=== PATIENT | male | born 1965 | race African-American/Black ===

== ENCOUNTER 2019-02-09 11:23 | Inpatient (IN) | payer SELFPAY ==
[2019-02-09 12:20] VITALS: BMI 37.5
--- NOTE | 2019-02-09 14:52 | HP ---
COWS - Scale Resting Pulse: 1= [place] 81-100 Sweatin= Chills/Flushing Restless Observation: 1= Difficult to Sit Still Pupil Size: 1= Pupils >than Normal Bone or Joint Aches: 2= Severe Diffuse Aches Runny Nose/ Eye Tearin= Runny Nose/Eyes GI Upset > 30mins: 2= Nausea/Diarrhea Tremor Observation: 2= Slight Tremor Visible Yawning Observation: 1= 1-2x During Session Anxiety or Irritability: 2=Irritable/Anxious Goose Flesh Skin: 0=Smooth Skin COWS Score: 15 CIWA Score - Admission Criteria OASAS Guidelines: Admission for Medically Managed Detox: Requires at least one of the followin. CIWA greater than 12 2. Seizures within the past 24 hours 3. Delirium tremens within the past 24 hours 4. Hallucinations within the past 24 hours 5. Acute intervention needed for co occurring medical disorder 6. Acute intervention needed for co occurring psychiatric disorder 7. Severe withdrawal that cannot be handled at a lower level of care (continued vomiting, continued diarrhea, abnormal vital signs) requiring intravenous medication and/or fluids 8. Admission ROS S - HPI Chief Complaint: i need help to stop using heroin and cocaine Allergies/Adverse Reactions: Allergies Allergy/AdvReac Type Severity Reaction Status Date / Time No Known Allergies Allergy Verified 02/09/19 12:12 History of Present Illness: this 53 years old male with heroin and cocaine dependence,seeking detox, withdrawal symptom, denied seizure denied syncope nicotine dependence 1/2 pack/day longest period of sobriety 9 years plan for [facility] history of hypertension,[facility] admitted 01/10 in [place] Exam Limitations: No Limitations - Ebola screening Have you traveled outside of the country in the last 21 days: No (N) Have you had contact with anyone from an Ebola affected area: No Do you have a fever: No - Review of Systems Constitutional: Chills, Loss of Appetite, Malaise, Night Sweats, Changes in sleep EENT: reports: Tearing, Nose Congestion Respiratory: reports: No Symptoms reported Cardiac: reports: No Symptoms Reported GI: reports: Nausea, Poor Appetite, Abdominal cramping : reports: No Symptoms Reported Musculoskeletal: reports: Back Pain, Joint Pain, Muscle Pain Integumentary: reports: Dryness Neuro: reports: Headache, Tremors Endocrine: reports: No Symptoms Reported Hematology: reports: No Symptoms Reported Psychiatric: reports: No Sypmtoms Reported, Judgement Intact, Mood/Affect Appropiate, Orientated x3 Other Systems: Reviewed and Negative Patient History - Patient Medical History Hx Anemia: No Hx Asthma: No Hx Chronic Obstructive Pulmonary Disease (COPD): No Hx Cancer: No Hx Cardiac Disorders: No Hx Congestive Heart Failure: Yes (admited in [place] 01/10) Hx Hypertension: Yes Hx Hypercholesterolemia: No Hx Pacemaker: No HX Cerebrovascular Accident: No Hx Seizures: No Hx Dementia: No Hx Diabetes: No Hx Gastrointestinal Disorders: No Hx Liver Disease: No Hx Genitourinary Disorders: No Hx Sexually Transmitted Disorders: No Hx Renal Disease (ESRD): No Hx Thyroid Disease: No Hx Human Immunodeficiency Virus (HIV): No (last 02/10 negative) Hx Hepatitis C: No Hx Depression: No Hx Suicide Attempt: No Hx Bipolar Disorder: No Hx Schizophrenia: No Other Medical History: no suicidal,no homicidal - Patient Surgical History Hx Appendectomy: Yes (in 1990) - PPD History Previous Implant?: Yes Documented Results: Negative w/o proof Implanted On Prior [facility] Admission?: No PPD to be Administered?: No - Smoking Cessation Smoking history: Current every day smoker Have you smoked in the past 12 months: Yes Aproximately how many cigarettes per day: 8 Cigars Per Day: 0 Hx Chewing Tobacco Use: No Initiated information on smoking cessation: Yes 'Breaking Loose' booklet given: 02/09/19 - Substance & Tx. History Hx Alcohol Use: No Hx Substance Use: Yes Substance Use Type: Cocaine, Heroin Hx Substance Use Treatment: Yes (10 years ago,unknown facility) - Substances abused Heroin Substance route: Inhalation Frequency: Daily Amount used: 6-7 bags Age of first use: 23 Date of last use: 02/08/19 Cocaine Substance route: Smoking Frequency: Daily Amount used: 2 grams Age of first use: 18 Date of last use: 02/02/19 Family Disease History - Family Disease History Family History: Denies Admission Physical Exam BHS - Vital Signs Vital Signs: Vital Signs - 24 hr 02/09/19 12:16 Temperature 97.5 F L Pulse Rate 85 Respiratory 20 Rate Blood Pressure 154/105 H - Physical General Appearance: Yes: Moderate Distress, Tremorous, Irritable, Sweating, Anxious, Other HEENTM: Yes: Normal ENT Inspection, NAN, Pharynx Normal Respiratory: Yes: Within Normal Limits, Lungs Clear, Normal Breath Sounds Neck: Yes: Within Normal Limits, Supple, Trachea in good position Breast: Yes: Within Normal Limits Cardiology: Yes: Within Normal Limits, Regular Rhythm, Regular Rate, S1, S2 Abdominal: Yes: Within Normal Limits, Normal Bowel Sounds, Flat, Soft Genitourinary: Yes: Within Normal Limits Back: Yes: Normal Inspection, Muscle Spasm Extremities: Yes: Tremors 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 - Detox or Rehab [facility] Level of Care: Medically Managed Detox Regimen/Protocol: Methadone Breathalyzer - Breathalyzer Breathalyzer: 0 Urine Drug Screen - Test Device Lot number: [id number] Expiration date: 11/23/19 - Control Is test valid?: Yes - Results Drug screen NEGATIVE: No Urine drug screen results: SHAZIA-Cocaine, MOP-Opiates, OXY-Oxycodone, MTD- Methadone Inpatient Rehab Admission - Rehab Decision to Admit Inpatient rehab admission?: No
[2019-02-09] MEDS ORDERED: NICOTINE POLACRILEX 2 MG GUM BUC PRN (15:10)
[2019-02-09] MEDS ORDERED: MAGNESIUM HYDROX 2400MG/30ML ORAL SUSPENSION 30 ML CUP PO PRN (15:10)
[2019-02-09] MEDS ORDERED: ACETAMINOPHEN 325 MG TABLET (FP) PO PRN ×2 (15:10)
[2019-02-09] MEDS ORDERED: MAGNESIUM CITRATE 300 ML BOTTLE PO PRN (15:10)
[2019-02-09] MEDS ORDERED: METHADONE HCL 10 MG TABLET (FOR DETOX USE ONLY) PO ONE (15:10)
[2019-02-09] MEDS ORDERED: MAG HYDROX/AL HYDROX/SIMETH 30 ML UNIT-DOSE CUP PO PRN (15:10)
[2019-02-09] MEDS ORDERED: BISMUTH SUBSALICYLATE 524 MG/30 ML UD PO PRN (15:10)
[2019-02-09] MEDS ORDERED: cloNIDine HCL 0.1 MG TABLET PO PRN (15:10)
[2019-02-09] MEDS ORDERED: MENTHOL/PHENOL 1 EACH UD MM PRN (15:10)
[2019-02-09] MEDS ORDERED: PNEUMOCOCCAL 23 VACCINE 0.5 ML VIAL IM ONE (16:45)
[2019-02-09] MEDS: THIAMINE HCL 100 MG TABLET (FP) PO SCH (22:18)
[2019-02-09] MEDS: CARVEDILOL 3.125 MG TABLET (FP) PO SCH (22:18)
[2019-02-09] MEDS: diazePAM 5 MG TABLET PO PRN (22:19)
[2019-02-10] MEDS: diazePAM 5 MG TABLET PO PRN ×4 (03:34→22:20)
[2019-02-10] MEDS: METHOCARBAMOL 500 MG TABLET PO PRN ×2 (06:34→18:38)
[2019-02-10] MEDS: hydrOXYzine PAMOATE 25 MG CAPSULE (FP) PO PRN ×2 (06:34→18:38)
[2019-02-10] MEDS ORDERED: METHADONE HCL 5 MG TABLET (FOR DETOX USE ONLY) PO ONE (10:00)
[2019-02-10] MEDS: PRENATAL VITAMINS W/ FOLIC ACID TABLET (FP) PO SCH (10:55)
[2019-02-10] MEDS: CARVEDILOL 3.125 MG TABLET (FP) PO SCH ×2 (10:55→22:19)
[2019-02-10] MEDS: FUROSEMIDE 40 MG TABLET (FP) PO SCH (10:55)
--- NOTE | 2019-02-10 11:16 | EKG ---
Test Reason : Blood Pressure : / mmHG Vent. Rate : 076 BPM Atrial Rate : 076 BPM P-R Int : 172 ms QRS Dur : 104 ms QT Int : 426 ms P-R-T Axes : 078 022 067 degrees QTc Int : 479 ms SINUS RHYTHM WITH PREMATURE ATRIAL COMPLEXES WITH ABERRANT CONDUCTION POSSIBLE LEFT ATRIAL ENLARGEMENT BORDERLINE ECG NO PREVIOUS ECGS AVAILABLE Confirmed by DEVIN OSPINA MD ([id number]) on 02/10/2019 11:16:04 AM Referred By: Jose Raul Brennan Confirmed By:DEVIN OSPINA MD
[2019-02-10 12:09] LABS: ALBUMIN 3.2 g/dl (3.4-5.0); BILIRUBIN,TOTAL 0.5 mg/dL (0.2-1); BLOOD UREA NITROGEN 8.2 mg/dL (7-18); CALCIUM 9.5 mg/dL (8.5-10.1); CREATININE 0.9 mg/dL (0.55-1.3); POTASSIUM 3.9 mmol/L (3.5-5.1); TOT PROT 6.1 g/dl (6.4-8.2)
[2019-02-10 12:33] LABS: HEMATOCRIT 46.3 % (35.4-49); HEMOGLOBIN 15.2 GM/dL (11.7-16.9); MCH 25.7 pg (25.7-33.7); MCHC 32.8 g/dl (32.0-35.9); MEAN CELL VOLUME 78.3 fl (80-96); MEAN PLT VOLUME 9.4 fl (7.5-11.1); PLATELET COUNT 332 K/MM3 (134-434); RBC 5.91 M/mm3 (4.00-5.60); RDW 15.2 % (11.9-15.9)
[2019-02-10] MEDS ORDERED: TRIMETHOBENZAMIDE HCL 200MG/2ML INJ IM PRN (14:07)
--- NOTE | 2019-02-10 14:10 | PN ---
BHS COWS - Scale Resting Pulse: 1= [place] 81-100 Sweatin= Chills/Flushing Restless Observation: 1= Difficult to Sit Still Pupil Size: 0= Normal to Room Light Bone or Joint Aches: 2= Severe Diffuse Aches Runny Nose/ Eye Tearin= Runny Nose/Eyes GI Upset > 30mins: 2= Nausea/Diarrhea Tremor Observation of Outstretched Hands: 2= Slight Tremor Visible Yawning Observation: 1= 1-2x During Session Anxiety or Irritability: 2=Irritable/Anxious Goose Flesh Skin: 3=Piloerection COWS Score: 17 [facility] Progress Note (SOAP) Subjective: Anxious, Nausea, Tremors, Body Aches, Interrupted Sleep, Diarrhea, Runny Nose, Sweating. Objective: PATIENT A & O X 2 (UNCERTAIN ABOUT CURRENT DAY / DATE). PATIENT OBSERVED AMBULATING ON UNIT UNASSISTED. IN NO ACUTE DISTRESS. 02/10/19 14:08 Vital Signs Temperature 97.5 F L 02/10/19 13:30 Pulse Rate 60 02/10/19 13:30 Respiratory Rate 20 02/10/19 13:30 Blood Pressure 133/98 02/10/19 13:30 O2 Sat by Pulse Oximetry (%) Laboratory Tests 02/10/19 02/10/19 02/10/19 07:30 07:30 07:30 WBC 8.0 RBC 5.91 H Hgb 15.2 Hct 46.3 MCV 78.3 L MCH 25.7 MCHC 32.8 RDW 15.2 Plt Count 332 MPV 9.4 Sodium 145 Potassium 3.9 Chloride 105 Carbon Dioxide 33 H Anion Gap 7 L BUN 8.2 Creatinine 0.9 Est GFR (CKD-EPI)AfAm 111.83 Est GFR (CKD-EPI)NonAf 96.49 Random Glucose 94 Calcium 9.5 Total Bilirubin 0.5 AST 26 ALT 30 Alkaline Phosphatase 142 H Total Protein 6.1 L Albumin 3.2 L RPR Titer Nonreactive LABS NOTED. Assessment: 02/10/19 14:08 WITHDRAWAL SYMPTOMS. ELEVATED ALKALINE PHOSPHATASE LEVEL. Plan: CONTINUE DETOX. INCREASE DAILY PO WATER INTAKE. PRN TIGAN IM FOR NAUSEA. PRN PEPTO-BISMOL PO FOR DIARRHEA. ENSURE PO FOR CALORIC SUPPLEMENTATION.
[2019-02-10] MEDS: IBUPROFEN 400 MG TABLET (FP) PO PRN (18:38)
[2019-02-10] MEDS: THIAMINE HCL 100 MG TABLET (FP) PO SCH (22:19)
[2019-02-10] MEDS: MELATONIN 5 MG TABLETS PO PRN (22:20)
[2019-02-11] MEDS: IBUPROFEN 400 MG TABLET (FP) PO PRN (07:07)
[2019-02-11] MEDS ORDERED: METHADONE HCL 10 MG TABLET (FOR DETOX USE ONLY) PO ONE (10:00)
[2019-02-11] MEDS: METHOCARBAMOL 500 MG TABLET PO PRN ×2 (10:41→21:43)
[2019-02-11] MEDS: diazePAM 5 MG TABLET PO PRN ×2 (10:41→21:42)
[2019-02-11] MEDS: FUROSEMIDE 40 MG TABLET (FP) PO SCH (10:42)
[2019-02-11] MEDS: CARVEDILOL 3.125 MG TABLET (FP) PO SCH ×2 (10:42→21:42)
[2019-02-11] MEDS: PRENATAL VITAMINS W/ FOLIC ACID TABLET (FP) PO SCH (10:43)
[2019-02-11] MEDS ORDERED: PNEUMOC 13-VAL CONJ-DIP CRM/PF 0.5 ML DISP.SYRIN IM ONE (12:00)
[2019-02-11] MEDS ORDERED: PNEUMOCOCCAL 23 VACCINE 0.5 ML VIAL IM ONE (12:00)
[2019-02-11] MEDS: hydrOXYzine PAMOATE 25 MG CAPSULE (FP) PO PRN (13:17)
--- NOTE | 2019-02-11 14:27 | PN ---
BHS COWS - Scale Resting Pulse: 1= [place] 81-100 Sweatin= Chills/Flushing Restless Observation: 0= Sits Still Pupil Size: 1= Pupils >than Normal Bone or Joint Aches: 1= Mild Discomfort Runny Nose/ Eye Tearin= Nasal Congestion GI Upset > 30mins: 1= Stomach Cramp Tremor Observation of Outstretched Hands: 2= Slight Tremor Visible Yawning Observation: 2= >3x During Session Anxiety or Irritability: 2=Irritable/Anxious Goose Flesh Skin: 0=Smooth Skin COWS Score: 12 [facility] Progress Note (SOAP) Subjective: doing well with methadone detox regimen long history of hypertension treated with valsartan 320 mg po daily bp elevation upon admission begin valsartan 160 mg that the patient was taking 320 mg po daily last dose unknown Objective: 02/11/19 14:34 Vital Signs Temperature 96.7 F L 02/11/19 13:10 Pulse Rate 91 H 02/11/19 13:10 Respiratory Rate 18 02/11/19 13:10 Blood Pressure 151/101 H 02/11/19 13:10 O2 Sat by Pulse Oximetry (%) Laboratory Last Values WBC 8.0 K/mm3 (4.0-10.0) 02/10/19 07:30 RBC 5.91 M/mm3 (4.00-5.60) H 02/10/19 07:30 Hgb 15.2 GM/dL (11.7-16.9) 02/10/19 07:30 Hct 46.3 % (35.4-49) 02/10/19 07:30 MCV 78.3 fl (80-96) L 02/10/19 07:30 MCH 25.7 pg (25.7-33.7) 02/10/19 07:30 MCHC 32.8 g/dl (32.0-35.9) 02/10/19 07:30 RDW 15.2 % (11.9-15.9) 02/10/19 07:30 Plt Count 332 K/MM3 (134-434) 02/10/19 07:30 MPV 9.4 fl (7.5-11.1) 02/10/19 07:30 Sodium 145 mmol/L (136-145) 02/10/19 07:30 Potassium 3.9 mmol/L (3.5-5.1) 02/10/19 07:30 Chloride 105 mmol/L (98-107) 02/10/19 07:30 Carbon Dioxide 33 mmol/L (21-32) H 02/10/19 07:30 Anion Gap 7 MMOL/L (8-16) L 02/10/19 07:30 BUN 8.2 mg/dL (7-18) 02/10/19 07:30 Creatinine 0.9 mg/dL (0.55-1.3) 02/10/19 07:30 Est GFR (CKD-EPI)AfAm 111.83 02/10/19 07:30 Est GFR (CKD-EPI)NonAf 96.49 02/10/19 07:30 Random Glucose 94 mg/dL (74-106) 02/10/19 07:30 Calcium 9.5 mg/dL (8.5-10.1) 02/10/19 07:30 Total Bilirubin 0.5 mg/dL (0.2-1) 02/10/19 07:30 AST 26 U/L (15-37) 02/10/19 07:30 ALT 30 U/L (13-61) 02/10/19 07:30 Alkaline Phosphatase 142 U/L (45-117) H 02/10/19 07:30 Total Protein 6.1 g/dl (6.4-8.2) L 02/10/19 07:30 Albumin 3.2 g/dl (3.4-5.0) L 02/10/19 07:30 RPR Titer Nonreactive (NONREACTIVE) 02/10/19 07:30 lab noted Assessment: 02/11/19 14:34 opiate withdrawal sx alert oriented x 3 02/11/19 14:35 S1S2 Regular no shortness of breath no wheezing 02/11/19 14:36 hypertension Plan: continue methadone detox regimen valsartan 160 mg po daily
[2019-02-11] MEDS ORDERED: VALSARTAN 160 MG TABLET (UD) PO SCH ×2 (14:30→14:32)
[2019-02-11] MEDS: THIAMINE HCL 100 MG TABLET (FP) PO SCH (21:42)
[2019-02-11] MEDS: MELATONIN 5 MG TABLETS PO PRN (21:44)
[2019-02-12] MEDS ORDERED: METHADONE HCL 5 MG TABLET (FOR DETOX USE ONLY) PO ONE (06:00)
[2019-02-12 09:15] VITALS: BP 152/100; PULSE 73; TEMP 96.4
[2019-02-12] MEDS: PRENATAL VITAMINS W/ FOLIC ACID TABLET (FP) PO SCH (09:45)
[2019-02-12] MEDS: CARVEDILOL 3.125 MG TABLET (FP) PO SCH (09:45)
[2019-02-12] MEDS: FUROSEMIDE 40 MG TABLET (FP) PO SCH (09:45)
[2019-02-12] MEDS: IBUPROFEN 400 MG TABLET (FP) PO PRN (09:46)
--- NOTE | 2019-02-12 15:33 | PN ---
BHS COWS - Scale Resting Pulse: 0= [place] 80 or Below Sweatin= Chills/Flushing Restless Observation: 0= Sits Still Pupil Size: 0= Normal to Room Light Bone or Joint Aches: 1= Mild Discomfort Runny Nose/ Eye Tearin= Nasal Congestion GI Upset > 30mins: 1= Stomach Cramp Tremor Observation of Outstretched Hands: 1= Tremor [place], Not Seen Yawning Observation: 1= 1-2x During Session Anxiety or Irritability: 1=Feels Anxious/Irritable Goose Flesh Skin: 0=Smooth Skin COWS Score: 7 BHS Progress Note (SOAP) Subjective: 53 years old male admitted on 02/07/19 for acute opiate withdrawal sx management doing well with methadone detox regimen no complication through out the detox stay alert oriented x 3
--- NOTE | 2019-02-12 15:35 | DS ---
[facility] Detox Discharge Summary Admission Date: 02/09/19 Discharge Date: 02/12/19 - History Present History: Opioid Dependence Additional Comments: 53 years old male admitted on 02/07/19 for acute opiate withdrawal sx management doing well with methadone detox regimen no complication through out the detox stay alert oriented x 3 abdomen soft non tender no wheezing aftercare [facility] - Physical Exam Results Vital Signs: Vital Signs Temperature 96.4 F L 02/12/19 09:14 Pulse Rate 73 02/12/19 09:14 Respiratory Rate 18 02/12/19 09:14 Blood Pressure 152/100 02/12/19 09:14 O2 Sat by Pulse Oximetry (%) Pertinent Admission Physical Exam Findings: opiate withdrawal sx Laboratory Last Values WBC 8.0 K/mm3 (4.0-10.0) 02/10/19 07:30 RBC 5.91 M/mm3 (4.00-5.60) H 02/10/19 07:30 Hgb 15.2 GM/dL (11.7-16.9) 02/10/19 07:30 Hct 46.3 % (35.4-49) 02/10/19 07:30 MCV 78.3 fl (80-96) L 02/10/19 07:30 MCH 25.7 pg (25.7-33.7) 02/10/19 07:30 MCHC 32.8 g/dl (32.0-35.9) 02/10/19 07:30 RDW 15.2 % (11.9-15.9) 02/10/19 07:30 Plt Count 332 K/MM3 (134-434) 02/10/19 07:30 MPV 9.4 fl (7.5-11.1) 02/10/19 07:30 Sodium 145 mmol/L (136-145) 02/10/19 07:30 Potassium 3.9 mmol/L (3.5-5.1) 02/10/19 07:30 Chloride 105 mmol/L (98-107) 02/10/19 07:30 Carbon Dioxide 33 mmol/L (21-32) H 02/10/19 07:30 Anion Gap 7 MMOL/L (8-16) L 02/10/19 07:30 BUN 8.2 mg/dL (7-18) 02/10/19 07:30 Creatinine 0.9 mg/dL (0.55-1.3) 02/10/19 07:30 Est GFR (CKD-EPI)AfAm 111.83 02/10/19 07:30 Est GFR (CKD-EPI)NonAf 96.49 02/10/19 07:30 Random Glucose 94 mg/dL (74-106) 02/10/19 07:30 Calcium 9.5 mg/dL (8.5-10.1) 02/10/19 07:30 Total Bilirubin 0.5 mg/dL (0.2-1) 02/10/19 07:30 AST 26 U/L (15-37) 02/10/19 07:30 ALT 30 U/L (13-61) 02/10/19 07:30 Alkaline Phosphatase 142 U/L (45-117) H 02/10/19 07:30 Total Protein 6.1 g/dl (6.4-8.2) L 02/10/19 07:30 Albumin 3.2 g/dl (3.4-5.0) L 02/10/19 07:30 RPR Titer Nonreactive (NONREACTIVE) 02/10/19 07:30 lab noted - Treatment Hospital Course: Detox Protocol Followed, Detoxed Safely, Responded well, Discharged Condition Good, Rehab Referral Accepted Patient has Accepted a Rehab Referral to: [facility] - Medication Discharge Medications: Ambulatory Orders Potassium Chloride 20 meq PO DAILY 02/09/19 Carvedilol [Coreg -] 3.125 mg PO BID #60 tablet 02/11/19 Furosemide [Lasix] 40 mg PO DAILY #7 tablet 02/11/19 Valsartan 320 mg PO DAILY #30 tablet 02/11/19 - Diagnosis (1) Essential hypertension Status: Chronic (2) Nicotine dependence Status: Acute Qualifiers: Nicotine product type: cigarettes Substance use status: in withdrawal Qualified Code(s): F17.213 - Nicotine dependence, cigarettes, with withdrawal (3) Opioid dependence with withdrawal Status: Acute - AMA Did Patient Leave Against Medical Advice: No
== END 2019-02-12 10:33 | disposition home or self-care (01) | DRG 773 ==
LOC: YASAS 11:23 → Y3N 16:22
PROVIDERS: ADMIT Surgery; ATTEND Surgery
PROC: HZ2ZZZZ Detoxification Services for Substance Abuse Treatment (ICD-10-PCS; principal; 2019-02-09)
DX: F11.23 Opioid dependence with withdrawal (principal); F17.213 Nicotine dependence, cigarettes, with withdrawal; I11.0 Hypertensive heart disease with heart failure; R74.0 Nonspecific elevation of levels of transaminase and lactic acid dehydrogenase [LDH]; I50.9 Heart failure, unspecified; R60.0 Localized edema
CPT/HCPCS: 36415; 80053; 85027; 86593; 90732; 93005; 93010; G0009